=== PATIENT | male | born 1980 | race Caucasian/White ===

== ENCOUNTER 2020-10-31 05:38 | Day surgery (SDC) | payer OTHER ==
[2020-10-25 14:52] LABS: BASOPHILS % (AUTO) 0.2 % (0-1); EOSINOPHILS # (AUTO) 0.3 X10'3 (0-0.9); EOSINOPHILS % (AUTO) 3.2 % (0-6); LYMPHOCYTES # (AUTO) 2.4 X10'3 (1.1-4.8); LYMPHOCYTES % (AUTO) 23.6 % (21-51); MEAN CORPUSCULAR HEMOGLOBIN 34.1 PG (27.0-31.0); MEAN CORPUSCULAR HGB CONC 34.6 g/dL (33.0-36.5); MEAN CORPUSCULAR VOLUME 98.4 FL (78-98); MEAN PLATELET VOLUME 7.5 FL (7.4-10.4); MONOCYTES # (AUTO) 0.6 X10'3 (0-0.9); MONOCYTES % (AUTO) 6.3 % (2-12); NEUTROPHILS # (AUTO) 6.8 X10'3 (1.8-7.7); NEUTROPHILS % (AUTO) 66.7 % (42-75); PRE OP HEMATOCRIT 46.9 % (42.0-52.0); PRE OP HEMOGLOBIN 16.2 g/dL (14.0-17.9); PRE OP PLATELET COUNT 281 X10'3 (140-440); RED BLOOD COUNT 4.76 X10'6 (4.70-6.10); RED CELL DISTRIBUTION WIDTH 12.9 % (11.5-14.5)
[2020-10-25 15:06] LABS: ALBUMIN 3.4 G/DL (3.4-5.0); ALBUMIN/GLOBULIN RATIO 0.9 (1.1-1.5); ALKALINE PHOSPHATASE 73 IU/L (46-116); BLOOD UREA NITROGEN 10 MG/DL (7-18); CALCIUM 8.9 MG/DL (8.5-10.1); CHLORIDE 104 MMOL/L (99-107); CREATININE 0.91 MG/DL (0.60-1.10); PRE OP ANION GAP 10 (8-16); PRE OP BILIRUB, TOTAL 0.4 MG/DL (0.0-1.0); PRE OP GLUCOSE 173 MG/DL (70-104); PRE OP POTASSIUM 3.9 MMOL/L (3.4-5.1); PRE OP SODIUM 139 MMOL/L (135-145); TOTAL CARBON DIOXIDE 25.1 MMOL/L (24-32); TOTAL PROTEIN 7.3 G/DL (6.4-8.2); eGFR > 90 ML/MIN
[2020-10-25 15:07] LABS: PRE OP ALT 146 U/L (30-65); PRE OP AST 120 U/L (10-37)
[~2020-10-31] VITALS: Ht 182.9 cm; Wt 170.0 kg
[2020-10-31] VITALS (18 sets, daily range): BP systolic 103–148; BP diastolic 57–97
[~2020-10-31 05:38] MED LIST: AMLO10TA48 PO; LISI1TAB51 PO; TRAM50TA2 PO; albuterol 2.5 MG/3 ML nebule NEB ONE; ceFAZolin inj. 3,000 MG in normal saline 100ml IV soln 100 ML IV ONE; famotidine 20mg tablet PO ONE; ringers solution, lacted 1,000 ML IV SCH
[2020-10-31] MEDS ORDERED: sevoflurane 250ml liquid IH ONE (07:15)
[2020-10-31] MEDS ORDERED: ketorolac trometh. 30mg/ml inj. ONE (07:15)
[2020-10-31] MEDS ORDERED: midazolam 1 mg/ML 2ml injection ONE (07:19)
[2020-10-31] MEDS ORDERED: fentaNYL /PF 50mcg/ml 5ml ampule ONE (07:22)
[2020-10-31] MEDS ORDERED: neostigmine methylsulfate 1 MG/ML 10ml vial ONE (08:34)
[2020-10-31] MEDS ORDERED: glycopyrrolate 0.2mg/ml inj ONE (08:34)
[2020-10-31] MEDS ORDERED: morphine 4 MG/ML inj SYRINge IV PRN (08:35)
[2020-10-31] MEDS ORDERED: ePHEDrine 50MG/ML INJ. ONE (08:35)
[2020-10-31] MEDS ORDERED: phenylephrine 10mg/ml inj. ONE (08:35)
[2020-10-31] MEDS ORDERED: ringers solution, lacted 1,000 ML IV SCH (08:35)
[2020-10-31] MEDS ORDERED: propofol inj 20 ML IV ONE (08:35)
[2020-10-31] MEDS ORDERED: morphine 2 MG/ML inj. syringe IV PRN (08:35)
[2020-10-31] MEDS ORDERED: ondansetron/PF 4mg/2ml inj ONE (08:35)
[2020-10-31] MEDS ORDERED: ondansetron/PF 4mg/2ml inj IV PRN ×2 (08:35→09:25)
[2020-10-31] MEDS ORDERED: succinylcholine 20mg/ml inj IV ONE (08:35)
[2020-10-31] MEDS ORDERED: LIDOcaine 2% (20mg/ml) 5ml vial ONE (08:35)
[2020-10-31] MEDS ORDERED: rocuronium 10mg/ml inj IV ONE (08:35)
[2020-10-31] MEDS ORDERED: dexamethasone sod phosphate 4mg/ml inj. ONE (08:35)
[2020-10-31] MEDS ORDERED: proCHLORperazine 10 MG/2 ml inj IV PRN (08:35)
[2020-10-31] MEDS ORDERED: meperidine/PF 25mg/ml syringe IV PRN ×2 (08:35)
[2020-10-31] MEDS ORDERED: BUPIVAcaine/PF 2.5 mg/ml (0.25%) 30ml vial ONE (08:42)
[2020-10-31] MEDS ORDERED: meperidine/PF 50mg/ml syringe ONE (08:55)
--- NOTE | 2020-10-31 09:04 | NUR ---
Received from OR via BED, accompanied by Anesthesiologist and report given by Anesthesiologist. PATIENT IS AWAKE TO VOICE, LAYING SUPINE ON BED, PIV ON LEFT HAND 20G WITH CONTINUOUS LR,RIGHT SHOULDER WITH DRESSING AND A SPLINT ON RIGHT ARM. PATIENT IS ABLE TO WIGGLE RIGHT FINGERS, CAP REFILL 2-3 SEC, WARM TO TOUCH, SIDE RAILS UP, WILL MONITOR. Addendum: 10/31/20 at 0916 by Tahira Brizuela RN Amended: Links added.
[2020-10-31] MEDS ORDERED: acetaminophen 325mg tablet PO PRN (09:25)
[2020-10-31] MEDS ORDERED: traMADol 50MG tablet PO PRN (09:25)
[2020-10-31] MEDS ORDERED: HYDROcodone/acetaminophen 10/325mg tab PO PRN (09:25)
[2020-10-31] MEDS ORDERED: magnesium hydroxide 30ml (MOM) UD suspension PO PRN (09:25)
[2020-10-31] MEDS ORDERED: diphenhydrAMINE 25mg capsule PO PRN ×2 (09:25)
[2020-10-31] MEDS ORDERED: bisacodyl 10mg suppository rectal RC PRN (09:25)
[2020-10-31] MEDS: meperidine/PF 25mg/ml syringe IV PRN ×2 (09:39→09:57)
--- NOTE | 2020-10-31 09:51 | NUR ---
Patient in room . I have received report from Tahira MAST and had the opportunity to ask questions and assume patient care.
--- NOTE | 2020-10-31 10:04 | NUR ---
Report called to receiving nurse PEYMAN MAST. RECEIVING NURSE AND NURSE AID AT BEDSIDE, PATIENT IS AWAKE, Transferred via BED WITH ONE BAG OF Belongings. REPORTED THAT HE RECEIVED TOTAL OF 50MG OF DEMEROL FOR PAIN, TOLERABLE PAIN LEVEL AT THIS TIME PER PATIENT, STABLE V.S., CONTINOUS PULSE OX IN PLACE AT ROOM, RIGHT SHOUDLER WITH DRESSING CDI, SPLINT ON RIGHT ARM, PIV IN LEFT HAND 20G LR RUNNING AT 50ML/HR, O2 >92% ON ROOM AIR, SIDE RAILS UP, BED LOW. Addendum: 10/31/20 at 1025 by Tahira Brizuela RN Amended: Links added.
--- NOTE | 2020-10-31 10:04 | NUR ---
PATIENT HAS ICE PACK ON RIGHT SHOULDER PER DR. CABRERA Addendum: 10/31/20 at 1037 by Tahira Brizuela RN Amended: Links added.
--- NOTE | 2020-10-31 10:23 | NUR ---
Patient arrived from recovery in the bed. Patient is complaining of pain to the right shoulder, dressing is clean dry and intact and immobilizer is in place. Patient is able to move his fingers, strong radial pulse and sensation is intact. Call light given and patient oriented to his room.
[2020-10-31] MEDS: HYDROcodone/acetaminophen 10/325mg tab PO PRN ×3 (10:34→23:31)
[2020-10-31] MEDS: acetaminophen 325mg tablet PO SCH ×2 (14:46→20:12)
[2020-10-31] MEDS: ceFAZolin/D5W- 1GM premix 50 ML IV SCH ×2 (16:10→23:31)
[2020-10-31] MEDS: potassium cl 20mEq in 1/2 NS 1,000 ML IV SCH ×2 (17:25→20:13)
--- NOTE | 2020-10-31 17:34 | NUR ---
Called Dr. Cerda because patient is anxious and wants to leave. He is going to be in to round on the patient and Dr. Palm wanted him to stay due to his obesity and sleep apnea overnight to monitor him. I let the patient know this and he is okay with the plan.
--- NOTE | 2020-10-31 18:00 | NUR ---
RECEIVED REPORT FROM PEYMAN ANDUJAR RN AND ASSUMED PATIENT CARE
--- NOTE | 2020-10-31 18:15 | NUR ---
Problems reprioritized. Patient report given, questions answered & plan of care reviewed with Joan MAST.
[2020-10-31] MEDS ORDERED: sennosides 8.6mg tablet PO SCH (21:00)
[2020-11-01] MEDS: potassium cl 20mEq in 1/2 NS 1,000 ML IV SCH (01:25)
[2020-11-01] MEDS: acetaminophen 325mg tablet PO SCH ×2 (02:00→07:22)
--- NOTE | 2020-11-01 06:21 | NUR ---
REPORT GIVEN TO MAGDALENA MAST
--- NOTE | 2020-11-01 06:25 | NUR ---
Patient in room [facility]TH[facility] 4013. I have received report from Joan MAST and Naye THAYER and had the opportunity to ask questions and assume patient care.
[2020-11-01 06:28] VITALS: BP 105/67
[2020-11-01 06:52] LABS: BASOPHILS % (AUTO) 0.2 % (0-1); EOSINOPHILS % (AUTO) 0 % (0-6); HEMATOCRIT 44.6 % (42.0-52.0); HEMOGLOBIN 15.1 g/dl (14.0-17.9); LYMPHOCYTES # (AUTO) 1.4 X10'3 (1.1-4.8); LYMPHOCYTES % (AUTO) 9.7 % (21-51); MEAN CORPUSCULAR HGB CONC 33.9 g/dL (33.0-36.5); MEAN CORPUSCULAR VOLUME 100.2 FL (78-98); MEAN PLATELET VOLUME 7.6 FL (7.4-10.4); MONOCYTES # (AUTO) 0.5 X10'3 (0-0.9); MONOCYTES % (AUTO) 3.7 % (2-12); NEUTROPHILS # (AUTO) 12.2 X10'3 (1.8-7.7); NEUTROPHILS % (AUTO) 86.4 % (42-75); PLATELET COUNT 260 X10'3 (140-440); RED BLOOD COUNT 4.44 X10'6 (4.70-6.10); RED CELL DISTRIBUTION WIDTH 13.1 % (11.5-14.5); WHITE BLOOD COUNT 14.1 X10'3 (4.5-11.0)
--- NOTE | 2020-11-01 06:55 | NUR ---
Patient in room ORTHO 4013A. I have received report from PRO CARLOS and had the opportunity to ask questions and assume patient care.
[2020-11-01 07:05] LABS: ANION GAP 9 (8-16); CHLORIDE 103 MMOL/L (99-107); POTASSIUM 4.8 MMOL/L (3.5-5.1); SODIUM 137 MMOL/L (135-145); TOTAL CARBON DIOXIDE 25.2 MMOL/L (24-32)
--- NOTE | 2020-11-01 07:18 | NUR ---
Spoke with Dr. Cerda regarding patient and he said that he is okay to be discharged.
[2020-11-01] MEDS: HYDROcodone/acetaminophen 10/325mg tab PO PRN (07:20)
[2020-11-01 07:21] VITALS: BP_SYST 151
[2020-11-01] MEDS ORDERED: HYDROchlorothiazide 12.5mg capsule PO SCH (08:00)
[2020-11-01] MEDS ORDERED: amLODIPine 5mg tablet PO SCH (08:00)
[2020-11-01] MEDS ORDERED: lisinopril 20mg tablet PO SCH (08:00)
--- NOTE | 2020-11-01 08:29 | NUR ---
Patient was discharged home, verbal order recieved from Dr. Blake to [place] home. Belongings sent with the patient and extra dressings sent with him as well. Went over discharge instructions and patient expressed understanding and need for follow up to evaluate for sleep apnea.
[2020-11-01] MEDS ORDERED: aspirin 325mg tablet PO SCH (08:30)
--- NOTE | 2020-11-01 08:38 | NUR ---
ACTING CLINICAL INSTRUCTOR, I REVIEWED TOBACCO DRUMMER CHARTING
--- NOTE | 2020-11-01 09:53 | NUR ---
ORIENTEE documentation: I have reviewed and agree with all interventions, assessments performed and documented by PRO ANDUJAR.
[2020-11-02] MEDS ORDERED: acetaminophen 325mg tablet PO PRN (09:25)
== END 2020-11-01 08:30 | disposition home or self-care (01) ==
LOC: PAS 05:38 → ORTHO 4S 10:30 → PAS 11-01 08:30
PROVIDERS: ATTEND Orthopaedic Surgery
DX: S43.014A Anterior dislocation of right humerus, initial encounter (principal); S46.011A Strain of muscle(s) and tendon(s) of the rotator cuff of right shoulder, initial encounter; S42.291A Other displaced fracture of upper end of right humerus, initial encounter for closed fracture; Z79.899 Other long term (current) drug therapy; Z20.822 Contact with and (suspected) exposure to COVID-19; F17.210 Nicotine dependence, cigarettes, uncomplicated; I10 Essential (primary) hypertension; E66.01 Morbid (severe) obesity due to excess calories; Z68.43 Body mass index [BMI] 50.0-59.9, adult; Z72.89 Other problems related to lifestyle; X58.XXXA Exposure to other specified factors, initial encounter; Y93.89 Activity, other specified; Y92.89 Other specified places as the place of occurrence of the external cause; Y99.8 Other external cause status
CPT/HCPCS: 29806; 36415; 80051; 80053; 82948; 85025; 94640; 94664; 94760; 97110; 97116; 97161; C1713; J0330; J0690; J1100; J1885; J2001; J2175; J2250; J2370; J2405; J2704; J2710; J3010; J3490; J7120; U0003; A4618; A6449; A7000; G0378; J3480